=== PATIENT | female | born 1970 | race Caucasian/White ===

== ENCOUNTER 2021-12-02 06:24 | Day surgery (SDC) | payer BC ==
[~2021-12-02] VITALS: Ht 170.2 cm; Wt 77.3 kg
[~2021-12-02 06:24] MED LIST: AMITRIPTYLINE H75 MG PO; MIRTAZAPINE30 MG PO; MONTELUKAST SOD10 MG PO; OMEPRAZOLE20 MG PO; ONDANSETRON ODT8 MG PO; TOPAMAX50 MG PO; ZOLMITRIPTAN5 MG PO
--- NOTE | 2021-12-02 08:24 | NUR ---
12/02/21 0824 Delores Parikh 0821- PT ARRIVES TO PACU AROUSABLE TO STIMULI. PT FALLS INSTANTLY BACK TO SLEEP WHEN NOT BEING TALKED TO. RESP EVEN AND UNLABORED. OXYGEN SAT HIGH 90'S TO 100% ON 3L VIA NC.
--- NOTE | 2021-12-02 09:02 | OR ---
[facility] [address] [place], [place] [address] Signed DATE OF OPERATION: 12/02/2021 SURGEON: Brigido Garcia MD PREOPERATIVE DIAGNOSIS: Screening. POSTOPERATIVE DIAGNOSES: 1. 15 mm pedunculated polyp at 80 cm (snare, tattoo). 2. 4 mm polyp at 6 cm. 3. Minimal sigmoid diverticulosis. 4. Poor bowel prep. PROCEDURES: Colonoscopy with snare polypectomy, hot biopsy and injection of tattoo. ESTIMATED BLOOD LOSS: None. INDICATIONS: Daniella is a 51-year-old female, asked to see me for her initial screening colonoscopy. She has no lower GI complaints. There is no family history of colon cancer or polyps. In the office, I had given her a pamphlet on colonoscopy. She understands the nature of that test. There is risk including, but not limited to gas bloating, crampy abdominal pain, bleeding, perforation requiring surgery, and missed diagnosis. We also reviewed the written instructions for the bowel prep line by line. She understands the need for IV conscious sedation. She had expressed understanding and wished to proceed. PROCEDURE NOTE: Daniella was taken into our endoscopy suite and placed in the left lateral decubitus position. She was given a total of 200 mcg of fentanyl and 9 mg of Versed to cover the case. The case happened to just go long and she had a poor bowel prep. She is actually easy to sedate and easy to pass the camera. A digital rectal exam was performed and this was unremarkable except for some liquid particulate stool matter. She has good sphincter tone and no masses. The adult colonoscope had been introduced and carefully advanced up through the sigmoid colon past liquid particulate stool matter as well as several large balls of stool. We saw what looked like just a couple of small areas of very minimal diverticulosis. At 80 cm, we found a fairly significant pedunculated polyp probably 12 if not 15 mm in diameter. Almost all that was removed with one pass of the snare. We then used the hot biopsy forceps to take off the base and place that into a Electronically Signed By: BRIGIDO GARCIA MD 12/02/21 0902 PATIENT NAME: DANIELLA VIGIL OPERATIVE REPORT DATE OF : 70 REPORT #: [id number] PHYSICIAN: BRIGIDO GARCIA MD PCP: HARMEET HARE DO REPORT IS CONFIDENTIAL AND NOT TO BE RELEASED WITHOUT AUTHORIZATION [facility] [address] [place], [place] [address] Signed separate canister. Unfortunately, the majority of that polyp fell in the stool, we could not find it. We actually removed multiple balls of stool with the basket, never did find the majority of that polyp. We went ahead and placed a tattoo at the base of that polyp. We pushed the camera, passed this area to about 100 cm. We encountered a wall of liquid particulate stool matter. We suctioned out an enormous amount of that stool until we finally clogged the scope. We never could get past that area. Therefore, the scope was then slowly withdrawn. It looks like we were probably in her transverse colon, but it is hard to know for sure. After that, the gas had been suctioned out and the colonoscope was removed. Daniella actually tolerated the procedure well. RECOMMENDATIONS: Daniella will follow up in my office in 7 to 14 days to review her results. She needs to return on a short interval with a double bowel prep, so we can better evaluate the full length of her colon. Brigido Garcia MD ALB/MODL /[id number] cc: MD Harmeet Prabhakar DO Copies: BRIGIDO GARCIA MD, ARIAN DO ~ Electronically Signed By: BRIGIDO GARCIA MD 12/02/21901 PATIENT NAME: DANIELLA VIGIL OPERATIVE REPORT DATE OF : 70 REPORT #: [id number] PHYSICIAN: BRIGIDO GARCIA MD PCP: HARMEET HARE DO REPORT IS CONFIDENTIAL AND NOT TO BE RELEASED WITHOUT AUTHORIZATION
--- NOTE | 2021-12-02 10:45 | NUR ---
PT ALERT, ORIENTED AND HERE FOR HER FIRST SCOPE. PT MENTIONED PREP WAS NOT PLEASANT, BUT MANAGED. ALL QUESTIONS ASKED ANSWERED. PT REQUESTED PRAYER, HER BOY FRIEND WITH PICK HER UP FOLLOWING DC. WILL FOLLOW
--- NOTE | 2021-12-03 13:01 | PATH ---
[facility] [address] [place], [place] [address] Signed SPECIMEN(S): A COLON POLYP AT 6 CM SPECIMEN(S): B POLYP BASE AT 80 CM SPECIMEN SOURCE: A. COLON POLYP AT 6 CM B. POLYP BASE AT 80 CM CLINICAL HISTORY: Colon cancer screening. Post Op: Colon / rectal polyps. FINAL PATHOLOGIC DIAGNOSIS: A. Colon, polyp at 6 cm, polypectomy, - Hyperplastic polyp. - Negative for dysplasia or malignancy. B. Colon, polyp base at 80 cm, polypectomy: - Fragments of tubular adenoma. - Negative for high-grade dysplasia or malignancy. NAL:cml:C2NR MICROSCOPIC EXAMINATION: Histologic sections of all submitted blocks are examined by light microscopy. These findings, together with the gross examination, support the pathologic diagnosis. GROSS DESCRIPTION: Two specimens are received in two containers, labeled "AW." A. The specimen, labeled "AW, colon polyp at 6 cm," is received in formalin and consists of one sanders soft tissue fragment(s) that measure 0.2 cm in greatest dimension. The specimen is entirely submitted in cassette (A1). B. The specimen, labeled "AW, colon polyp base at 80 cm," is received in formalin and consists of two sanders soft tissue fragment(s) that measure 0.2 cm in greatest dimension. The specimen is entirely submitted in cassette (B1). JS (under the direct supervision of a pathologist) The Gross Description was prepared using a voice recognition system. The report was reviewed for accuracy; however, sound-alike word errors, addition and/or deletions may occur. If there is any question about this report, please contact Client Services. PERFORMING LABORATORY: PATIENT NAME: KIKE VIGIL PATHOLOGY DATE OF : 70 REPORT #: [id number] PHYSICIAN: VELMA PATHOLOGY PCP: DANELLE HARE DO REPORT IS CONFIDENTIAL AND NOT TO BE RELEASED WITHOUT AUTHORIZATION [facility] [address] [place] [address] Signed The technical component was performed [place] [address] (Vat Washer: Astrid Castillo MD; CLIA# [id number]). Professional interpretation was performed by [facility], [address] [address] (CLIA# [id number]). Diagnostician: Brook Mendieta MD Pathologist Electronically Signed 12/03/2021 Copies: ~ PATIENT NAME: KIKE VIGIL PATHOLOGY DATE OF : 70 REPORT #: [id number] PHYSICIAN: VELMA PATHOLOGY PCP: DANELLE HARE DO REPORT IS CONFIDENTIAL AND NOT TO BE RELEASED WITHOUT AUTHORIZATION
== END 2021-12-02 09:21 | disposition home or self-care (01) ==
LOC: OPS 06:24 → DS 06:24 → OPS 07:30 → DS 07:30 → OPS 09:21
PROVIDERS: ATTEND Colon & Rectal Surgery
PROC: 3E0H8KZ Introduction of Other Diagnostic Substance into Lower GI, Via Natural or Artificial Opening Endoscopic (ICD-10-PCS; 2021-12-02)
PROC: 0DBE8ZZ Excision of Large Intestine, Via Natural or Artificial Opening Endoscopic (ICD-10-PCS; principal; 2021-12-02 07:30)
DX: Z12.11 Encounter for screening for malignant neoplasm of colon (principal); D12.6 Benign neoplasm of colon, unspecified; K57.30 Diverticulosis of large intestine without perforation or abscess without bleeding; E78.5 Hyperlipidemia, unspecified; J45.909 Unspecified asthma, uncomplicated
CPT/HCPCS: 99153; G0500; J2250; J3010; J7121

== ENCOUNTER 2022-01-06 07:25 | Day surgery (SDC) | payer BC ==
[~2022-01-06] VITALS: Ht 200.7 cm; Wt 77.1 kg
--- NOTE | 2022-01-06 09:05 | NUR ---
01/06/22 0905 Dayanna Aguirre 0901 PATIENT ARRIVES TO PACU AWAKE BUT DROWSY. DENIES PAIN OR NAUSEA. RESP EVEN AND UNLABORED, NC ON AT 2 LITERS, TURNED OFF ON ARRIVAL TO PACU. PATIENT SLEEPING WHEN NOT STIMULATED.
--- NOTE | 2022-01-06 10:06 | OR ---
[facility] [address] [place], [place] [address] Signed DATE OF OPERATION: 01/06/2022 SURGEON: Brigido Garcia MD PREOPERATIVE DIAGNOSES: 1. 15 mm pedunculated tubular adenomatous polyp at 80 cm (tattoo). 2. Hyperplastic rectal polyps. 3. Minimal sigmoid diverticulosis. POSTOPERATIVE DIAGNOSES: 1. Minimal sigmoid diverticulosis. 2. 10 mm polyp at 10 cm. 3. 4 mm polyp at 7 cm. 4. Healing polypectomy site/tattoo at 80 cm. 5. Long redundant colon. PROCEDURE: Colonoscopy with hot biopsy. ESTIMATED BLOOD LOSS: None. INDICATIONS: Daniella is a 51-year-old female, who came to us for her initial screening colonoscopy on 12/02/2021. Unfortunately, her bowel prep was extremely poor and we could not make it all the way through her colon. We did snare a large 15 mm pedunculated polyp at 80 cm. It was lost in the stool. We took a biopsy at the base of that polypectomy site and that came back as a tubular adenoma. We left a small tattoo in that area. She also had small hyperplastic polyps in the rectum. She had minimal sigmoid diverticulosis. In the office, we gone over this together in detail. We had her return today after using a double bowel prep. She said it was a very long day but felt it was a productive day. She is very aware of colonoscopy. She understands there is risk including, but not limited to gas bloating, crampy abdominal pain, bleeding, perforation requiring surgery, and missed diagnosis. She recalls the need for IV conscious sedation. She had expressed understanding and wished to proceed. PROCEDURE NOTE: Daniella was taken into our endoscopy suite and placed in the left lateral decubitus position. She was given IV sedation with 125 mcg of fentanyl and 5 mg of Versed. A digital rectal exam was performed and this was unremarkable. The adult colonoscope was Electronically Signed By: BRIGIDO GARCIA MD 01/06/22 1006 PATIENT NAME: DANIELLA VIGIL OPERATIVE REPORT DATE OF : 70 REPORT #: [id number] PHYSICIAN: BRIGIDO GARCIA MD PCP: HARMEET HARE DO REPORT IS CONFIDENTIAL AND NOT TO BE RELEASED WITHOUT AUTHORIZATION [facility] [address] [place], [place] [address] Signed introduced and advanced under direct visualization of the camera. She had several areas of liquid particulate stool matter. Those were irrigated and suctioned out quite nicely. We found that she has a fairly long redundant colon. We eventually made our way into the cecum itself with some abdominal compression and additional sedation. Amazingly, her prep could have been a little better. She might consider adding magnesium citrate in the future. With some irrigation and suctioning, we could see the appendiceal orifice and the ileocecal valve. We turned the camera up into the terminal ileum just a few cm and the scope was then withdrawn back into the colon. We had taken pictures throughout for photodocumentation. We found her tattoo back at 80 cm. The polypectomy site is still healing. No evidence of any recurrent polyp or additional polyp that needed to be removed. She does have some diverticula in the sigmoid colon. They were quite small, few in number, and scattered about. Once in the rectum, we found a 10 mm polyp behind one of the haustral folds at the top of the rectum. It was easily removed with a hot biopsy forceps. She then had a small 4 mm polyp at 7 cm easily removed with the hot biopsy forceps. Upon retroflexion of the scope, there was no additional pathology noted above the anal canal. After this, the gas was suctioned out and the colonoscope removed. Daniella tolerated the procedure quite well. RECOMMENDATIONS: I will see Daniella back in my office in the next 7 to 14 days to review her results. She could consider using magnesium citrate followed by double bowel prep in the future. She might consider returning in three years, but not more than five. Brigido Garcia MD [facility] /[id number] cc: MD Harmeet Prabhakar DO Copies: BRIGIDO GARCIA MD Electronically Signed By: BRIGIDO GARCIA MD 01/06/22 1006 PATIENT NAME: DANIELLA VIGIL OPERATIVE REPORT DATE OF : 70 REPORT #: [id number] PHYSICIAN: BRIGIDO GARCIA MD PCP: HARMEET HARE DO REPORT IS CONFIDENTIAL AND NOT TO BE RELEASED WITHOUT AUTHORIZATION [address] [address] Signed HARMEET HARE DO ~ Electronically Signed By: BRIGIDO GARCIA MD 01/06/22 1006 PATIENT NAME: DANIELLA VIGIL OPERATIVE REPORT DATE OF : 70 REPORT #: [id number] PHYSICIAN: BRIGIDO GARCIA MD PCP: HARMEET HARE DO REPORT IS CONFIDENTIAL AND NOT TO BE RELEASED WITHOUT AUTHORIZATION
--- NOTE | 2022-01-07 12:25 | PATH ---
[facility] [address] [place], [place] [address] Signed SPECIMEN(S): A RECTAL POLYP AT 10 CM SPECIMEN(S): B POLYP AT 7 CM SPECIMEN SOURCE: A. RECTAL POLYP AT 10 CM B. POLYP AT 7 CM CLINICAL HISTORY: Follow-up colonoscopy. FINAL PATHOLOGIC DIAGNOSIS: A. Rectum, polyp at 10 cm, polypectomy: - Fragments of hyperplastic polyp. - Negative for dysplasia or malignancy. B. Colon, polyp at 7 cm, polypectomy: - Hyperplastic polyp. - Negative for dysplasia or malignancy. NAL:cml:C2NR MICROSCOPIC EXAMINATION: Histologic sections of all submitted blocks are examined by light microscopy. These findings, together with the gross examination, support the pathologic diagnosis. GROSS DESCRIPTION: Two specimens are received in two containers labeled with "AW". A. The specimen, labeled "AW, polyp at 10 cm, rectum," is received in formalin and consists of two fragments of pink-sanders tissue (0.3 to 0.4 cm in greatest dimension). The specimen is submitted entirely in cassette A1. B. The specimen, labeled "AW, polyp at 7 cm," is received in formalin and consists of one fragment of pink-sanders tissue (0.3 cm in greatest dimension). The specimen is submitted entirely in cassette B1. AC (under the direct supervision of a pathologist) The Gross Description was prepared using a voice recognition system. The report was reviewed for accuracy; however, sound-alike word errors, addition and/or deletions may occur. If there is any question about this report, please contact Client Services. PERFORMING LABORATORY: PATIENT NAME: KIKE VIGIL PATHOLOGY DATE OF : 70 REPORT #: [id number] PHYSICIAN: VELMA GARCIA PCP: DANELLE HARE DO REPORT IS CONFIDENTIAL AND NOT TO BE RELEASED WITHOUT AUTHORIZATION [facility] [address] [address] Signed The technical component was performed by [employer] [place] [address] (CLIA# [id number]). [facility], [address] [address] (CLIA# [id number]). Diagnostician: Brook Mendieta MD Pathologist Electronically Signed 01/07/2022 Copies: ~ PATIENT NAME: KIKE VIGIL PATHOLOGY DATE OF : 70 REPORT #: [id number] PHYSICIAN: VELMA GARCIA PCP: DANELLE HARE DO REPORT IS CONFIDENTIAL AND NOT TO BE RELEASED WITHOUT AUTHORIZATION
== END 2022-01-06 09:35 | disposition home or self-care (01) ==
LOC: OPS 07:25 → DS 07:25 → OPS 07:35 → DS 07:35 → OPS 09:35
PROVIDERS: ATTEND Colon & Rectal Surgery
PROC: 0DBP8ZX Excision of Rectum, Via Natural or Artificial Opening Endoscopic, Diagnostic (ICD-10-PCS; principal; 2022-01-06 07:35)
DX: K63.5 Polyp of colon (principal); K62.1 Rectal polyp; K57.30 Diverticulosis of large intestine without perforation or abscess without bleeding; Q43.8 Other specified congenital malformations of intestine; G43.909 Migraine, unspecified, not intractable, without status migrainosus; E78.5 Hyperlipidemia, unspecified; J45.909 Unspecified asthma, uncomplicated; Z87.891 Personal history of nicotine dependence; Z88.0 Allergy status to penicillin; Z88.8 Allergy status to other drugs, medicaments and biological substances
CPT/HCPCS: 99153; G0500; J2250; J3010

== ENCOUNTER 2024-08-24 14:26 | Emergency (ER) | payer BC ==
[~2024-08-24] VITALS: Ht 170.2 cm; Wt 84.5 kg
[2024-08-24] MEDS ORDERED: CYCLOBENZAPRINE HCL 10 MG TAB PO ONE (15:00)
[2024-08-24] MEDS ORDERED: dexAMETHasone 4 MG TAB PO ONE (15:00)
[2024-08-24] MEDS ORDERED: KETOROLAC TROMETHAMINE 60 MG/2 ML VIAL IM ONE (15:00)
[2024-08-24] MEDS ORDERED: CYCLOBENZAPRINE10 MG PO (16:01)
[2024-08-24] MEDS ORDERED: PREDNISONE20 MG PO (16:01)
[2024-08-24 16:07] VITALS: BP 128/85
== END 2024-08-24 16:07 | disposition home or self-care (01) ==
LOC: ED 14:26
DX: M54.50 Low back pain, unspecified (principal); Z88.0 Allergy status to penicillin; Z88.8 Allergy status to other drugs, medicaments and biological substances; Z79.899 Other long term (current) drug therapy
CPT/HCPCS: 96372; 99283; J1885; J8540

== ENCOUNTER 2025-09-11 08:30 | Day surgery (SDC) | payer BC, OTHER ==
[~2025-09-11] VITALS: Ht 170.2 cm; Wt 86.0 kg
[~2025-09-11 08:30] MED LIST changes: +CELEBREX200 MG PO; +CYCLOBENZAPRINE10 MG PO; +DRIZALMA SPRINK60 MG PO; +IBLOOD GLUCOSE TEST STRIP 1 EA TEST VI PRN; +LACTATED RINGER'S 1,000 ML IV SCH; +LIDOCAINE HCL 1% 5 ML SDV INJ ONE; +NEURONTIN300 MG PO; +PREDNISONE20 MG PO; +RIBOFLAVIN400 MG PO; +ZETIA10 MG PO
[2025-09-11] MEDS ORDERED: LIDOCAINE HCL 2% 5 ML SDV ONE (08:34)
[2025-09-11 08:43] VITALS: BP 125/75
--- NOTE | 2025-09-11 09:28 | NUR ---
09/11/25 0928 Tatyana Macias 0924-PATIENT ARRIVED TO PACU ON 6L NC RR EVEN NONAROUSABLE LAYING LEFT LATERAL IVF INFUSING. SR 0926-PATIENT AROUSING TO VERBAL STIMULI ORIENTED TO PACU HOB ELEVATED PLACED ON 4L NC RR EVEN.
[2025-09-11 09:57] VITALS: BP 131/87
== END 2025-09-11 10:05 | disposition home or self-care (01) ==
LOC: DS 08:30
PROVIDERS: ATTEND Surgery
PROC: 0DJD8ZZ Inspection of Lower Intestinal Tract, Via Natural or Artificial Opening Endoscopic (ICD-10-PCS; principal; 2025-09-11 09:30)
DX: Z12.11 Encounter for screening for malignant neoplasm of colon (principal); G43.909 Migraine, unspecified, not intractable, without status migrainosus; K21.9 Gastro-esophageal reflux disease without esophagitis; E78.49 Other hyperlipidemia; Z88.0 Allergy status to penicillin; Z88.8 Allergy status to other drugs, medicaments and biological substances; Z86.0101 Personal history of adenomatous and serrated colon polyps; Z90.49 Acquired absence of other specified parts of digestive tract; Z79.899 Other long term (current) drug therapy
CPT/HCPCS: 00811; J2003; J2704; J7121